=== PATIENT | male | born 1960 | race Caucasian/White ===

== ENCOUNTER → 2023-06-09 08:29 | Outpatient (REF) | payer BC, SELFPAY | LOC: PAVMRI 08:29 | PROVIDERS: ATTENDING PHYSICIAN Internal Medicine Clinical Cardiac Electrophysiology | DX: R94.31 Abnormal electrocardiogram [ECG] [EKG] (principal); I47.20 Ventricular tachycardia, unspecified; R53.83 Other fatigue; R00.1 Bradycardia, unspecified; I25.84 Coronary atherosclerosis due to calcified coronary lesion; F90.0 Attention-deficit hyperactivity disorder, predominantly inattentive type; G47.33 Obstructive sleep apnea (adult) (pediatric) | CPT/HCPCS: 75561; 75565; A9585 ==

== ENCOUNTER 2024-07-14 20:09 | Emergency (ER) | payer MEDICARE, BC, SELFPAY ==
[2024-07-14 20:12] VITALS: BP 176/119
[2024-07-14 20:32] VITALS: BMI 28.0
[2024-07-14 21:25] VITALS: BP 147/98
--- NOTE | 2024-07-14 21:30 | EDRN ---
on clindamycin. Pt has pain on swallowing
[2024-07-14 21:31] LABS: % Basophils 0.5 % (0-2); % Immature Granulocytes 0.5 % (0-0.5); % Lymphocytes 10.2 % (20.5-51.1); % Neutrophils 79.8 % (42.2-75.2); Absolute Basophils 0.1 10^3/uL (0-0.2); Absolute Eosinophils 0.1 10^3/uL (0-0.7); Absolute Immature Granulocytes 0.1 10^3/uL (0-0.05); Absolute Lymphocytes 1.3 10^3/uL (1.2-3.4); Absolute Neutrophils 9.9 10^3/uL (1.4-6.5); Hematocrit 40.7 % (39.0-52.0); Hemoglobin 14.5 g/dL (13.0-18.0); Mean Corp Hgb Conc. 35.6 g/dL (33.0-37.0); Mean Corpuscular Hgb 31.4 pg (27.0-31.0); Mean Corpuscular Volume 88.1 fL (80.0-94.0); Mean Platelet Volume 10.2 fL (7.4-10.4); Nucleated Red Blood Cells % 0 % (-); Platelet Count 244 10^3/uL (130-400); Red Blood Cell Count 4.62 10^6/uL (4.70-6.10); Red Cell Dist. Width 13.3 % (11.5-14.5); White Blood Cell Count 12.4 10^3/uL (4.8-10.8)
[2024-07-14 21:47] LABS: ALT (SGPT) 14 U/L (0-50); AST (SGOT) 17 U/L (17-59); Albumin 4.2 g/dl (3.5-5.0); Alkaline Phosphatase 61 U/L (38-126); Blood Urea Nitrogen 20 mg/dl (9-20); Calcium 9.3 mg/dl (8.4-10.2); Carbon Dioxide 29 mmol/L (22-30); Chloride 103 mmol/L (98-107); Estimated Creatinine Clearance 74 ml/min; Glucose 105 mg/dl (70-99); Potassium 3.5 mmol/L (3.5-5.1); Sodium 141 mmol/L (135-145); Total Bilirubin 0.9 mg/dl (0.2-1.3); Total Protein 6.4 g/dl (6.3-8.2); eGFR > 60.00
--- NOTE | 2024-07-14 22:16 | ED.GENMED ---
History of Present Illness
General
Chief Complaint: Dental Problem
Source: patient
Exam Limitations: none
Time Seen by Provider: 07/14/24 20:58
Nursing documentation reviewed up to this point in time: agreed with
History of Present Illness
History of Present Illness:
Patien to ED with complaint of lower jaw pain , swelling, swelling to neck.
Past History
Past History
ED Past Medical History: HTN, Hypercholesterolemia and Other (Migraine headaches, attention deficit disorder, rheumatoid arthritis, DVT)
ED Past Surgical History: Cholecystectomy
Social History
Tobacco: Smoker
Alcohol: None
Drug: None
Personal:
Living: with family
Employment: Employed
Family History
Family History: Other (Noncontributory)
Review of Systems
Review of Systems
Allergies reviewed?: Yes
All Other Systems: ROS reviewed and negative except as documented in HPI and ROS
Constitutional: Reports no symptoms
EENT: Reports other (Pain and swelling to right lower jaw and chin. Swelling into neck)
Respiratory: Reports no symptoms
Cardiac: Reports no symptoms
ABD/GI: Reports no symptoms
: Reports no symptoms
Musculoskeletal: Reports no symptoms
Skin: Reports no symptoms
Neurological: Reports no symptoms
Psychiatric: Reports no symptoms
Phy Exam
General Physical Exam
General Presentation: mild distress
General age: appears stated age
General Skin: warm and dry
General Habitus: normal
General Mental: alert
ENT Exam
ENT Exam: EOMI, TM's normal, pharynx normal and other (pain and swelling to right lower jaw and chin. Swelling into neck. +trismus)
Cardiovascular Exam
Cardiovascular Exam: regular rate/rhythm
Pulmonary Exam
Pulmonary Exam: lungs clear and no respiratory distress
Musculoskeletal Exam
Musculoskeletal Exam: full ROM
Skin Exam
Skin Exam: normal color, warm/dry and no rash
Psychiatric Exam
Psychiatric Exam: normal mood/affect
Course
Orders/Labs/Results
Orders:
Orders
07/14/24 21:[address] [CT Neck With Iv Contrast] Urgent
Comment:
Reason For Exam: pain/swelling lower jaw and neck
07/14/24 21:22
Complete Blood Count/With Diff Urgent
Comprehensive Metabolic Panel Urgent
07/14/24 23:09
Doxycycline [Vibramycin] 100 mg PO NOW STA
Oxycodone/Acetaminophen [Percocet 5/325] 1 tablet PO NOW STA
07/14/24 23:53
Ondansetron Orally Disint [Zofran Odt (Orally Disintegrating)] 4 mg .ROUTE .STK-MED ONE
07/14/24 23:54
Ondansetron Orally Disint [Zofran Odt (Orally Disintegrating)] 4 mg PO NOW STA
Abnormal Lab Results
07/14/24
21:22
WBC 12.4 H 10^3/uL
(4.8-10.8)
RBC 4.62 L 10^6/uL
(4.70-6.10)
MCH 31.4 H pg
(27.0-31.0)
Abs Immat Gran (auto) 0.1 H 10^3/uL
(0-0.05)
Absolute Neuts (auto) 9.9 H 10^3/uL
(1.4-6.5)
Absolute Monos (auto) 1.0 H 10^3/uL
(0.1-0.6)
Neutrophils % 79.8 H %
(42.2-75.2)
Lymphocytes % 10.2 L %
(20.5-51.1)
Glucose 105 H mg/dl
(70-99)
07/14/24 21:22
07/14/24 21:22
Vital Signs
Initial and Last Documented VS:
Initial Vital Signs
Temp Pulse Resp BP Pulse Ox
99.2 F 114 18 176/119 97
07/14/24 20:12 07/14/24 20:12 07/14/24 20:12 07/14/24 20:12 07/14/24 20:12
Last Documented Vital Signs
Temp Pulse Resp BP Pulse Ox
99.2 F 82 16 160/112 97
07/14/24 20:12 07/14/24 23:50 07/14/24 23:50 07/14/24 23:50 07/14/24 23:50
Update Note
Update Note:
CT results reviewed with Dr Reed. Dr. Christian consulted. Recommends stopping clindamycin and starting doxycyline. He will follow upwith patient in the office in the AM. Discussed plan with patient and he is agreeable to follow up plan. Also
discussed with him the cervical vertebra findings on CT. He will follow up with PCP for further evaluation. Ct results faxed to Dr. Garcia
ED Attending Note
-
Portions of this chart may have been created with voice recognition software.� Occasional wrong word or��sound alike� substitutions may have occurred due to the inherent limitations of voice recognition software.
Discharge Plan
Departure
Patient Disposition: Home (Routine Discharge)
Date of Disposition: 07/14/24
Time of Disposition: 22:57
Patient with high blood pressure during this ER visit?: No
Condition: Fair
Covid-19: Not Applicable
Discharge Problem:
Dental abscess
Instructions: Dental Pain (DC)
Prescriptions:
New
doxycycline hyclate 100 mg capsule
100 mg PO BID Qty: 20 0RF
hydrocodone-acetaminophen 5-325 mg tablet
1 tab PO Q4H PRN (Reason: Pain) Qty: 14 0RF
ondansetron 4 mg tablet,disintegrating
4 mg PO TID PRN (Reason: nausea and vomiting) 3 Days Qty: 10 0RF
No Action
ivermectin [Soolantra] 30 GM cream
1 applic topical HS
aspirin 81 MG tablet,delayed release (DR/EC)
81 mg PO DAILY
methotrexate sodium 2.5 MG tablet
15 mg PO TU
folic acid 1 MG tablet
1 mg PO QPM
hydroxychloroquine 200 MG tablet
200 mg PO BID
latanoprost 0.005 % Drops
1 drp BOTH EYES HS
hydrochlorothiazide 50 mg Tablet
50 mg PO DAILY
clindamycin HCl 150 mg Capsule
150 mg PO Q6H
metoprolol succinate 25 mg Tablet Extended Release 24 Hr
25 mg PO DAILY
doxycycline hyclate 20 mg Tablet
20 mg PO DAILY
ondansetron 4 mg Tablet,Disintegrating
4 mg PO Q8HPRN PRN (Reason: nausea)
metaxalone 800 mg Tablet
800 mg PO QPM
rosuvastatin 10 mg Tablet
10 mg PO QPM
Referrals:
Dylan Christian MD, DDS [Active] - Tomorrow (Please call the office in the AM for your appointment time.)
Vanita Garcia DO [Family Provider] -
Activity Restrictions/Additional Instructions:
Follow up with Dr. Christian tomorrow. Return to the emergency department immediately for any difficulty breathing or swallowing.
Interventions
Interventions:
*Risk Screen - Suicide Last Done: 07/14/24 20:12
*General Assessment Last Done: 07/14/24 20:12
*Neglect/Abuse Screening Last Done: 07/14/24 20:12
*ED- Fall Risk Assessment Last Done: 07/14/24 20:30
*ED COVID-19 Vaccine History Last Done: 07/14/24 20:12
Discharge Date and Time
Print Language: [id number]
[2024-07-14] MEDS: VIBRAMYCIN 100 MG PO (23:48)
[2024-07-14] MEDS: PERCOCET 5/325 1 TABLET PO (23:48)
[2024-07-14 23:50] VITALS: BP 160/112
[2024-07-14] MEDS: ZOFRAN ODT (ORALLY DISINTEGRATING) 4 MG PO (23:54)
== END 2024-07-15 | disposition home or self-care (01) ==
LOC: EMR 20:09
PROVIDERS: Nurse Practitioner; EMERGENCY PHYSICIAN Emergency Medicine; FAMILY PHYSICIAN Family Medicine
DX: K04.7 Periapical abscess without sinus (principal); I10 Essential (primary) hypertension; E78.00 Pure hypercholesterolemia, unspecified; F90.9 Attention-deficit hyperactivity disorder, unspecified type; M06.9 Rheumatoid arthritis, unspecified; F17.200 Nicotine dependence, unspecified, uncomplicated; Z86.718 Personal history of other venous thrombosis and embolism; Z90.49 Acquired absence of other specified parts of digestive tract
CPT/HCPCS: 99284; 70491; 80053; 85025; Q9967

== ENCOUNTER → 2025-03-09 12:44 | Outpatient (REF) | payer MEDICARE, BC, SELFPAY | LOC: HWRAD 12:44 | PROVIDERS: ATTENDING PHYSICIAN Otolaryngology; FAMILY PHYSICIAN Family Medicine | DX: J32.0 Chronic maxillary sinusitis (principal) | CPT/HCPCS: 70486 ==

== ENCOUNTER → 2025-04-11 09:59 | Outpatient (REF) | payer MEDICARE, BC, SELFPAY | LOC: RAD 09:59 | PROVIDERS: ATTENDING PHYSICIAN Otolaryngology; FAMILY PHYSICIAN Family Medicine | DX: K21.9 Gastro-esophageal reflux disease without esophagitis (principal); R07.0 Pain in throat; M54.2 Cervicalgia; J32.0 Chronic maxillary sinusitis | CPT/HCPCS: 74221 ==